=== PATIENT | male | born 1980 | race Caucasian/White ===

== ENCOUNTER 2019-12-05 07:38 | Outpatient (CLI) | payer BC, SELFPAY ==
--- NOTE | ~2019-12-05 | XR_ITS ---
EXAMINATION: XR UGIAC w kub DATE: 12/05/2019 08:17 INDICATION: Gastroesophageal reflux disease. TECHNIQUE: The patient drank thick barium, gas-producing crystals, and thin barium. Fluoroscopy of th e esophagus, stomach, and proximal small bowel was performed. Fluoroscopy exposure time was 0.6 minut es. The total number of images was 244. Total dose-area product was 9.16 Gy-cm^2. COMPARISON: CT abdomen and pelvis 01/13/2019 FINDINGS: There is no mass or stricture of the esophagus. Esophageal motility is normal. There is no hiatal hernia. There was no gastroesophageal reflux with provocative maneuvers. The stomach and proxi mal small bowel show normal folding patterns. IMPRESSION: 1. Normal upper gastrointestinal series. Reviewed, dictated and finalized at location A.
== END 2019-12-05 07:39 | disposition home or self-care (01) ==
LOC: ANHIMG 07:49
PROVIDERS: PCP Physician Assistant; Visit Provider Physician Assistant
DX: K21.9 Gastro-esophageal reflux disease without esophagitis (principal)
CPT/HCPCS: 74246

== ENCOUNTER 2023-05-13 13:27 | Outpatient (CLI) | payer OTHER, SELFPAY ==
--- NOTE | ~2023-05-13 | MR_ITS ---
EXAMINATION: MR brain/brain stem wo/w con DATE: 05/13/2023 14:51 INDICATION: Worsening headache. TECHNIQUE: Magnetic resonance imaging (MRI) of the brain and brainstem was performed without and with 17 mL MultiHance intravenous contrast. COMPARISON: None. FINDINGS: The cerebellar tonsils extend 6 mm anterior to right magnum, consistent with Chiari I malfo rmation. There is no intracranial hemorrhage, acute infarction, or abnormal intracranial mass lesion. The ventricles are normal in size. There is mild mucosal thickening in the paranasal sinuses. The or bits are normal. The mastoid air cells are normal. IMPRESSION: 1. Chiari I malformation. Reviewed, dictated and finalized at location E. [employer] IMPRESSION: 1. Chiari I malformation.
== END 2023-05-13 13:28 ==
LOC: GOSHIMG 13:29
PROVIDERS: PCP Nurse Practitioner; Visit Provider Nurse Practitioner
DX: R51.9 Headache, unspecified (principal); R25.1 Tremor, unspecified; R25.3 Fasciculation; G93.5 Compression of brain
CPT/HCPCS: 70553; A9577

== ENCOUNTER 2023-11-05 10:34 | Outpatient (CLI) | payer OTHER, SELFPAY ==
--- NOTE | ~2023-11-05 | XR_ITS ---
Lumbosacral Spine: AP and lateral views Clinical History: Pain Findings: The normal lordotic curve is maintained. The vertebral bodies and posterior elements are i ntact. The intervertebral disc spaces are preserved. There is mild facet arthropathy at the lower maurizio mbar spine. The sacroiliac joints are normally outlined. Impression: Mild facet arthropathy at the lower lumbar spine. Reviewed, dictated and finalized at location . Impression: Mild facet arthropathy at the lower lumbar spine.
== END 2023-11-05 10:35 ==
PROVIDERS: Visit Provider Nurse Practitioner
DX: M54.50 Low back pain, unspecified (principal)
CPT/HCPCS: 72100